=== PATIENT | male | born 1945 | race Caucasian/White ===

== ENCOUNTER → 2018-02-20 09:59 | Day surgery (SDC) | payer OTHER, SELFPAY ==
[2018-02-20] MEDS: PROPARACAINE 0.5% OPHTH SOL 2 DROPS EYE-OP (10:35)
[2018-02-20] MEDS: CATARACT EYE COMPOUND (10 DROPS/SYRINGE) 3 DROPS EYE-OP (10:40)
[2018-02-20 10:48] VITALS: BP 151/82; PULSE 60; RESP 15; TEMP 36.4; O2SAT 95; BMI 21.5
--- NOTE | 2018-02-20 11:10 | PM.PREOP ---
Pre-operative Note Interval Note Changes: No
--- NOTE | 2018-02-20 11:11 | P.OP_ITS ---
Operative Date/Time/Diagnoses Pre-op diagnosis: Cataract Right eye Post-op diagnosis: same Procedure & Clinicians Procedure: Cataract Surgery Same procedure as scheduled: Yes Surgeon: Kemal Fuentes Anesthesia Type: MAC +/- and Sedation Operative Notes Procedure in detail: Patient brought to the operating suite. Tetracaine drops placed in the right eye. Patient was prepped and draped in sterile manner. Wire lid speculum was placed in the eye. Betadine drops were placed on the eye. This was irrigated. Lidocaine jelly was placed on the eye. A paracentesis port was created with a side-port blade. 0.1 mL 1% preservative free lidocaine was injected into the anterior chamber. The anterior chamber was deepened with viscoelastic. 2.6 mm keratome was used to create a temporal clear corneal incision. Cystotome and Utrata forceps were used to create continuous tear capsulorrhexis. Balanced salt solution was used to hydro dissect the nucleus. The phacoemulsification handpiece was inserted and the nucleus was removed using the stop and chop technique. The irrigation aspiration handpiece was inserted and the remaining cortex was removed. Anterior chamber was deepened with viscoelastic. An Galo ZCB00 intraocular lens with a power of 10.0 was injected into the capsular bag. Irrigation aspiration handpiece was inserted and the remaining viscoelastic was removed. Incision was hydrated with balanced salt solution and found to be leak free with pressure with Weck- Soheila sponges. 0.1 mL Vigamox injected anterior chamber. 0.3 mL Kenalog 10 mg was injected subconjunctivally. Lid speculum was removed. The patient left the operating room in excellent condition. Complications: none Condition: stable Disposition: same day surgery
--- NOTE | 2018-02-20 11:11 | P.OP.PRE_ITS ---
Pre-operative Note Interval Note Changes: No
--- NOTE | 2018-02-20 11:23 | SUR.OPER ---
Supine on eye stretcher, head on extension cradle secured with tape. Arms tucked at sides with blanket. Pillow under knees.
[2018-02-20] MEDS: LIDOCAINE JELLY 2% 5 ML 1 APPLIC TOP (11:26)
[2018-02-20] MEDS: PHENYLEPHRINE/LIDOCAINE 3ML VIAL (OR) EYE-OP (11:26)
[2018-02-20] MEDS: CHONDROIDTIN/SOD HYALURONATE 1.05 ML SYRINGE INTRAOCULA (11:26)
[2018-02-20] MEDS: MOXIFLOXACIN OPHTH DROPS 3 ML BOTTLE 2 DROPS INJ (11:26)
[2018-02-20] MEDS: TETRACAINE 0.5% OPHTH DROPS 15 ML 2 DROPS EYE-RIGHT (11:27)
[2018-02-20] MEDS: TRIAMCINOLONE 50 MG/5 ML VIAL INJ (11:27)
[2018-02-20] MEDS: BALANCED SALT IRRIG SOLN NO.2 500 ML, EPINEPHrine 1 MG IRR (11:27)
[2018-02-20 11:45] VITALS: BP 112/72; PULSE 45; RESP 16; TEMP 36.8; O2SAT 99
== END ==
PROVIDERS: PCP Family Medicine Geriatric Medicine; Visit Provider Ophthalmology
DX: H25.11 Age-related nuclear cataract, right eye (principal)
CPT/HCPCS: J0171; J2250; J3010; J3301

== ENCOUNTER 2018-03-06 09:50 | Day surgery (SDC) | payer OTHER, SELFPAY ==
[2018-03-06] MEDS: PROPARACAINE 0.5% OPHTH SOL 2 DROPS EYE-OP (10:16)
[2018-03-06 10:19] VITALS: BMI 21.5
[2018-03-06] MEDS: CATARACT EYE COMPOUND (10 DROPS/SYRINGE) 3 DROPS EYE-OP (10:23)
[2018-03-06 10:25] VITALS: BP 137/82; PULSE 52; RESP 16; TEMP 36.4; O2SAT 100
--- NOTE | 2018-03-06 11:24 | PM.PREOP ---
Pre-operative Note Interval Note Changes: No
--- NOTE | 2018-03-06 11:25 | P.OP.PRE_ITS ---
Pre-operative Note Interval Note Changes: No
--- NOTE | 2018-03-06 11:25 | P.OP_ITS ---
Operative Date/Time/Diagnoses Pre-op diagnosis: Cataract Left eye Post-op diagnosis: same Procedure & Clinicians Surgeon: Kemal Fuentes Anesthesia Type: MAC +/- and Sedation Operative Notes Procedure in detail: Patient brought to the operating suite. Tetracaine drops placed in the left eye. Patient was prepped and draped in sterile manner. Wire lid speculum was placed in the eye. Betadine drops were placed on the eye. This was irrigated. Lidocaine jelly was placed on the eye. A paracentesis port was created with a side-port blade. 0.1 mL 1% preservative free lidocaine was injected into the anterior chamber. The anterior chamber was deepened with viscoelastic. 2.6 mm keratome was used to create a temporal clear corneal incision. Cystotome and Utrata forceps were used to create continuous tear capsulorrhexis. Balanced salt solution was used to hydro dissect the nucleus. The phacoemulsification handpiece was inserted and the nucleus was removed using the stop and chop technique. The irrigation aspiration handpiece was inserted and the remaining cortex was removed. Anterior chamber was deepened with viscoelastic. An Galo ZCB00 intraocular lens with a power of 9.0 was injected into the capsular bag. Irrigation aspiration handpiece was inserted and the remaining viscoelastic was removed. Incision was hydrated with balanced salt solution and found to be leak free with pressure with Weck- Soheila sponges. 0.1 mL Vigamox injected anterior chamber. 0.3 mL Kenalog 10 mg was injected subconjunctivally. Lid speculum was removed. The patient left the operating room in excellent condition. Complications: none Condition: stable Disposition: same day surgery
[2018-03-06] MEDS: CHONDROIDTIN/SOD HYALURONATE 1.05 ML SYRINGE INTRAOCULA (11:38)
[2018-03-06] MEDS: MOXIFLOXACIN OPHTH DROPS 3 ML BOTTLE 2 DROPS INJ (11:39)
[2018-03-06] MEDS: TRIAMCINOLONE 50 MG/5 ML VIAL INJ (11:39)
[2018-03-06] MEDS: LIDOCAINE JELLY 2% 5 ML 1 APPLIC TOP (11:39)
[2018-03-06] MEDS: PHENYLEPHRINE/LIDOCAINE 3ML VIAL (OR) EYE-OP (11:39)
[2018-03-06] MEDS: TETRACAINE 0.5% OPHTH DROPS 15 ML 2 DROPS EYE-LEFT (11:39)
[2018-03-06] MEDS: BALANCED SALT IRRIG SOLN NO.2 500 ML, EPINEPHrine 1 MG IRR (11:40)
[2018-03-06 11:53] VITALS: BP 93/63; PULSE 50; TEMP 36.4; O2SAT 97
[2018-03-06 11:58] VITALS: BP 101/67
== END 2018-03-06 12:00 | disposition home or self-care (01) ==
LOC: OR 09:51
PROVIDERS: PCP Family Medicine Geriatric Medicine; Visit Provider Ophthalmology
DX: H25.12 Age-related nuclear cataract, left eye (principal)
CPT/HCPCS: J0171; J2250; J3010; J3301

== ENCOUNTER → 2022-12-15 13:56 | Outpatient (CLI) | payer MEDICARE, SELFPAY | PROVIDERS: PCP Student in an Organized Health Care Education/Training Program; Referring Provider Podiatrist; Visit Provider Podiatrist | DX: Z01.818 Encounter for other preprocedural examination (principal) | CPT/HCPCS: 93005; 93010 ==

== ENCOUNTER 2023-06-02 09:48 | Day surgery (SDC) | payer MEDICARE, SELFPAY ==
[2023-03-08 10:17] VITALS: BMI 25.6
[2023-06-02] MEDS: LACTATED RINGERS 1,000 ML 42 ML IV (10:03)
[2023-06-02 10:24] VITALS: BMI 22.5
[2023-06-02 10:50] VITALS: BP 139/89; PULSE 66; RESP 16; TEMP 36.1; O2SAT 100
--- NOTE | 2023-06-02 13:09 | PM.PREOP ---
Pre-operative Note Interval Note History & Physical reviewed/Exam performed by Physician: Yes Changes to H&P: No
--- NOTE | 2023-06-02 13:10 | PM.OP.1 ---
Operative Date/Time/Diagnoses Date of procedure: 06/02/23 Time of procedure: 13:10 Pre-op diagnosis: Right second painful hammertoe Post-op diagnosis: same Procedure & Clinicians Procedure: Right second metatarsophalangeal amputation Same procedure as scheduled: Yes Indications: 77 yo male with painful ongoing hammertoe contracture. Conservative measures failed to alleviate her pain and she wished to have surgical intervention at this time. We spoke of the risks, potential complications, alternatives, expected outcomes. Consent was signed, no contraindications to the procedure at this time. Surgeon: Kassy Mccain Click Yes if Unassisted: Yes Anesthesia Type: General Operative Notes Closure Type: primary Specimen(s): none sent Estimated Blood Loss (mL): 20 Blood products transfused: none Tourniquet time (min): 0 Procedure in detail: The patient was brought to the operating room and placed on the operating table in the supine position. The tourniquet was placed about the right ankle but not inflated during the case. Well-padded, appropriately aligned. After induction of anesthesia the right foot and ankle were prepped and draped in the usual aseptic manner. Local anesthesia was performed to the right foot second metatarsophalangeal area. After a check of anesthesia a full-thickness circumferential incision was made around the second toe of the right foot. This was then continued into the metatarsophalangeal joint linearly. The toe was carefully disarticulated and passed from the field. The area was irrigated with copious amounts of normal sterile saline. No necrotic tissue or abscesses were noted. Skin and tissue were revised to allow for appropriate closure. Vessels were cauterized and ligated as necessary. 4-0 Vicryl was used subcutaneously for closure and 3-0 nylon for the skin. The area was dressed with a sterile lightly compressive dressing. He was transferred to the PACU with vital signs stable and vascular status intact to the foot. Complications: none Post-operative Condition: stable Disposition: PACU Plan for aftercare: Following a period of postoperative monitoring, the patient will be discharged to home on written and oral postoperative instructions including keeping the dressing dry and intact, no greater than 50% weight to the surgical foot, and elevating the foot when seated home. DVT prevention techniques have been reviewed. For the 1st postoperative visit the dressing will be changed and close to the 3rd postoperative week we will likely remove the sutures.
[2023-06-02] MEDS: CEFAZOLIN 2 GM/100 ML PREMIX 100 ML IV (13:25)
--- NOTE | 2023-06-02 13:38 | SUR.OPER ---
Supine on padded OR bed, head on pillow, arms secured on padded arm boards at <90 degrees abduction, legs uncrossed, safety belt at thigh, tape over blanket over lower legs.
[2023-06-02] MEDS: BUPIVACAINE 0.5% (PF) 30 ML VIAL INJ (13:42)
[2023-06-02] MEDS: ACETAMINOPHEN IV 1,000 MG/100 ML VIAL 400 MG IV (13:48)
[2023-06-02 14:10] VITALS: BP 120/70; BP 122/72; PULSE 68; PULSE 77; RESP 16; TEMP 36.2; O2SAT 98
[2023-06-02 14:19] VITALS: BP 99/64; PULSE 71; RESP 16; TEMP 36.2; O2SAT 98
[2023-06-02 14:47] VITALS: BP 139/89; PULSE 66; RESP 16; TEMP 36.2; O2SAT 100
== END 2023-06-02 14:57 | disposition home or self-care (01) ==
LOC: OR 09:50
PROVIDERS: PCP Student in an Organized Health Care Education/Training Program; Referring Provider Podiatrist; Visit Provider Podiatrist
PROC: (CPT 28820; principal; 2023-06-02 11:30)
DX: M20.41 Other hammer toe(s) (acquired), right foot (principal)
CPT/HCPCS: 28820; J0131; J0690; J1100